=== PATIENT | female | born 1995 | race African-American/Black ===

== ENCOUNTER 2017-08-06 14:52 | Emergency (ER) | payer BC, OTHER, MEDICAID ==
[~2017-08-06] VITALS: Ht 149.9 cm; Wt 77.1 kg
[~2017-08-06 14:52] MED LIST: ACCUNEB SO1.25 MG/1 INH; ANTIVERT25 MG PO; CEPHALEXIN 500500 M3 PO; COMPAZINE10 MG PO; IBUPROFEN 800800 M1 PO; KEFLEX500 MG PO; MEDROLDOSEPACK PO; NOHOMEMEDICATIONS; PHENERGAN 25 MG25 M1 PO; PREDNISONE 20 M20 M1 PO; PREDNISONE50 MG PO; PROAIR HFA8.5 GM INH; TORADOL 10 MG T10 MG PO; VENTOLIN HFA 1818 GM INH; ZANTAC 150MG T150 MG PO; ZOFRAN ODT4 MG PO; ZOFRAN4 MG PO
[2017-08-06] MEDS ORDERED: VENTOLIN HFA 1818 GM INH (15:31)
[2017-08-06 16:13] VITALS: BP 118/87
== END 2017-08-06 16:14 | disposition home or self-care (01) ==
LOC: M.ERS 14:52
DX: J06.9 Acute upper respiratory infection, unspecified (principal); J45.909 Unspecified asthma, uncomplicated

== ENCOUNTER 2017-08-08 02:59 | Emergency (ER) | payer BC, OTHER, MEDICAID ==
[~2017-08-08] VITALS: Ht 149.9 cm; Wt 77.1 kg
[2017-08-08] MEDS ORDERED: NASONEX17 GM NASAL (03:35)
[2017-08-08 03:44] VITALS: BP 129/75
== END 2017-08-08 03:46 | disposition home or self-care (01) ==
LOC: M.ERS 02:59
DX: J06.9 Acute upper respiratory infection, unspecified (principal); J45.909 Unspecified asthma, uncomplicated